=== PATIENT | female | born 1985 | race American Indian/Alaskan Native ===

== ENCOUNTER 2016-12-01 06:06 | Emergency (ER) | payer MEDICAID ==
[2016-12-01 07:16] VITALS: BP 124/78
--- NOTE | 2016-12-01 07:32 | Emergency Department Report ---
ED Chest Pain HPI - General Chief Complaint: Fall Stated Complaint: FALL Time Seen by Provider: 12/01/16 07:23 Source: patient Mode of arrival: Ambulatory Limitations: No Limitations - History of Present Illness -: Sudden, week(s) Onset: during rest Pain Location: substernal Severity: mild Consistency: intermittent Improves With: nothing Worsens With: nothing re: other (dizzy this time). denies: nausea, vomting, diaphoresis, dyspnea, sense of impending doom Other Symptoms: syncope, palpitations. denies: cough, fever, rash, acid taste in mouth, leg swelling, burping Treatments Prior to Arrival: none Aspirin use within the Past 7 Days: (0) No - Related Data On Oral Contraceptives: No Previous Rx's Medication Instructions Recorded Last Taken Type Ciprofloxacin HCl [Ciprofloxacin 500 mg PO Q12HR #14 tab 01/27/15 Unknown Rx TAB] Fluconazole [Diflucan TAB] 150 mg PO ONCE #1 tablet 01/27/15 Unknown Rx HYDROcodone/APAP 5-325 [[place] 1 each PO Q6HR PRN #12 tablet 01/27/15 Unknown Rx 5/325] Allergies Allergy/AdvReac Type Severity Reaction Status Date / Time No Known Allergies Allergy Verified 01/27/15 08:33 Heart Score - HEART Score History: Slightly suspicious EKG: Normal Age: < 45 Risk factors: No known risk factors Troponin: < normal limit HEART Score: 0 ED Review of Systems ROS: Stated complaint: FALL Other details as noted in HPI Comment: Unobtainable due to pts medical conditions Constitutional: no symptoms reported, see HPI. denies: chills Eyes: as per HPI. denies: eye pain ENT: as per HPI. denies: ear pain, throat pain Respiratory: no symptoms reported, see HPI. denies: cough, orthopnea Cardiovascular: as per HPI, chest pain, palpitations, syncope, other (w fall- saw pcp fri for cp ekg normal per pt). denies: dyspnea on exertion, orthopnea, edema, paroxysmal nocturnal dyspnea Endocrine: no symptoms reported, see HPI. denies: excessive sweating, flushing , intolerance to cold, intolerance to heat Gastrointestinal: as per HPI. denies: abdominal pain, nausea, vomiting Genitourinary: as per HPI, other (lmp 9-20). denies: urgency, dysuria Musculoskeletal: as per HPI. denies: back pain Skin: as per HPI. denies: rash, lesions Neurological: as per HPI. denies: headache, weakness Psychiatric: as per HPI. denies: anxiety, depression Hematological/Lymphatic: as per HPI. denies: easy bleeding (denies drugs or etoh) ED Past Medical Hx - Past Medical History Previous Medical History?: Yes Additional medical history: Vaginal delivery 2012 - Surgical History Past Surgical History?: No - Family History Family history: no significant - Social History Smoking Status: Former Smoker Substance Use Type: None - Medications Home Medications: Home Medications Medication Instructions Recorded Confirmed Last Taken Type Ciprofloxacin HCl [Ciprofloxacin 500 mg PO Q12HR #14 tab 01/27/15 Unknown Rx TAB] Fluconazole [Diflucan TAB] 150 mg PO ONCE #1 tablet 01/27/15 Unknown Rx HYDROcodone/APAP 5-325 [[place] 1 each PO Q6HR PRN #12 tablet 01/27/15 Unknown Rx 5/325] ED Physical Exam - General Limitations: No Limitations General appearance: alert - Head Head exam: Present: other (swelling frontal head ) - Eye Eye exam: Present: PERRL, EOMI - ENT ENT exam: Present: mucous membranes moist - Neck Neck exam: Present: normal inspection - Respiratory Respiratory exam: Present: normal lung sounds bilaterally - Cardiovascular Cardiovascular Exam: Present: regular rate (60s) - GI/Abdominal GI/Abdominal exam: Present: soft, normal bowel sounds - Rectal Rectal exam: Present: deferred - Extremities Exam Extremities exam: Present: normal inspection, full ROM, normal capillary refill. Absent: tenderness - Back Exam Back exam: Present: normal inspection, full ROM. Absent: tenderness, CVA tenderness (R), CVA tenderness (L) - Neurological Exam Neurological exam: Present: alert, oriented X3, CN II-XII intact, normal gait, reflexes normal. Absent: motor sensory deficit - Psychiatric Psychiatric exam: Present: normal affect, normal mood. Absent: depressed, agitated - Skin Skin exam: Present: warm, dry, intact. Absent: normal color, rash, diaphoretic ED Course Vital Signs 12/01/16 07:11 Temperature 98.4 F Pulse Rate 61 Respiratory 18 Rate Blood Pressure 124/78 O2 Sat by Pulse 100 Oximetry - Reevaluation(s) Reevaluation #1: 12/01/16 09:18 to er last pm sp fall she said she had cp got up and went to br next thing she knew she was on floor she had been having a bm frontal skull swelling no other co to pcp on friday for this cp ekg n per pt no hx no fam hx no drugs/etoh preg neg labs noted trop added and neg 12 lead nap taking po Reevaluation #2: 12/01/16 09:32 currently on no home meds chest xray n pt had to leave to get child long discussion on poc will see dr. thurman pt cell [phone] on dc bp 126/80, hr 70 no cp no sob verbalizes understanding dc instructions FREDDY score - Freddy Score Age > 65: (0) No Aspirin use within the Past 7 Days: (0) No 3 or more CAD Risk Factors: (0) No 2 or more Angina events in past 24 hrs: (0) No Known CAD with more than 50% Stenosis: (0) No Elevated Cardiac Markers: (0) No ST Deviation Greater than 0.5mm: (0) No FREDDY Score: 0 ED Medical Decision Making - Lab Data Result diagrams: 12/01/16 07:54 12/01/16 07:54 - EKG Data EKG shows normal: sinus rhythm - EKG Data Interpretation: no acute changes - Radiology Data Radiology results: image reviewed - Medical Decision Making see note likely vasovagal Critical care attestation.: If time is entered above; I have spent that time in minutes in the direct care of this critically ill patient, excluding procedure time. ED Disposition Clinical Impression: Chest pain, Fall, Syncope Disposition: DC-01 TO HOME OR SELFCARE Is pt being admited?: No Does the pt Need Aspirin: No Condition: Stable Instructions: Chest Pain (ED), Syncope (ED) Additional Instructions: no caffeine no alcohol drink a lot of water stand slowly follow up pcp again Friday follow up cardiology - see below let him know you where here Referrals: PRIMARY CARE,MD [Primary Care Provider] - 3-5 Days JONAH THURMAN MD [Staff Physician] - 3-5 Days Time of Disposition: 09:28
[2016-12-01 08:00] LABS: Bacteria,Urine 1+ /HPF (Negative); Bilirubin,Urine NEG (Negative); Blood,Urine NEG (Negative); Ketones,Urine NEG (Negative); Leukocyte Esterase,Urine TR (Negative); Mucus,Urine 2+ /HPF; Nitrite,Urine NEG (Negative); Protein,Urine <15 mg/dL mg/dL (Negative); Urobilinogen,Urine < 2.0 mg/dL (<2.0)
[2016-12-01 08:41] LABS: Alanine Aminotransferase 54 units/L (7-56); Albumin 4.2 g/dL (3.9-5); Albumin/Globulin Ratio 1.2 %; Alkaline Phosphatase 75 units/L (35-129); Anion Gap 17 mmol/L; BUN/Creatinine Ratio 20; Blood Urea Nitrogen 12 mg/dL (7-17); Calcium 9.3 mg/dL (8.4-10.2); Carbon Dioxide 25 mmol/L (22-30); Chloride 100.7 mmol/L (98-107); Glucose 92 mg/dL (65-100); Potassium 4.3 mmol/L (3.6-5.0); Sodium 138 mmol/L (137-145); Total Protein 7.7 g/dL (6.3-8.2)
[2016-12-01 08:53] LABS: Basophils % (Auto) 0.8 % (0.0-1.8); Eosinophils % (Auto) 8.1 % (0.0-4.3); Hematocrit 39.8 % (30.3-42.9); Hemoglobin 13.3 gm/dl (10.1-14.3); Mean Corpuscular HGB Conc 34 % (30-34); Mean Corpuscular Hemoglobin 26 pg (28-32); Mean Corpuscular Volume 78 fl (79-97); Platelet Count 280 K/mm3 (140-440); Red Blood Count 5.07 M/mm3 (3.65-5.03); Red Cell Distribution Width 16.3 % (13.2-15.2); White Blood Count 4.7 K/mm3 (4.5-11.0)
--- NOTE | 2016-12-01 09:25 | XRay Report ---
CHEST TWO VIEWS: 12/01/16 06:06:00 CLINICAL: Chest pain. COMPARISON: 09/10/09 FINDINGS: Normal heart and pulmonary vasculature. The lungs are normally expanded and clear.Scoliosis and mild degenerative changes in the spine. IMPRESSION: No acute cardiopulmonary process.
[2016-12-01 15:05] LABS: Urine Drugs of Abuse Note Disclamer
== END 2016-12-01 09:00 | disposition home or self-care (01) ==
LOC: ED 06:06
DX: R07.89 Other chest pain (principal); R55 Syncope and collapse; Z87.891 Personal history of nicotine dependence
CPT/HCPCS: 36415; 71020; 80053; 80307; 81001; 83735; 84443; 84484; 84703; 85025; 93005; 93010; 99284

== ENCOUNTER 2018-05-15 12:08 | Emergency (ER) | payer SELFPAY ==
--- NOTE | 2018-05-15 12:18 | Emergency Department Report ---
Chief Complaint: Back Pain/Injury Stated Complaint: BACK/THROAT/STOMACH PAIN Time Seen by Provider: 05/15/18 12:15 - HPI History of Present Illness: This is a 32 y.o. female that presents with sore throat and low back pain since this morning. - Exam Vital Signs: Vital Signs 05/15/18 12:14 Temperature 98.6 F Pulse Rate 110 H Respiratory 18 Rate Blood Pressure 119/48 O2 Sat by Pulse 99 Oximetry MSE screening note: Focused history and physical exam performed. Due to findings the following was ordered: labs ACC for further evaluation. ED Disposition for MSE Condition: Stable
[2018-05-15] MEDS ORDERED: IBUPROFEN PO ONE (13:33)
--- NOTE | 2018-05-15 13:34 | Emergency Department Report ---
ED General Adult HPI - General Chief complaint: Back Pain/Injury Stated complaint: BACK/THROAT/STOMACH PAIN Time Seen by Provider: 05/15/18 12:15 Source: patient Mode of arrival: Ambulatory Limitations: No Limitations - History of Present Illness Initial comments: 32-year-old female presents to ED with lower abdominal pain, lower back pain, sore throat, cough, chills since this morning. Patient states her daughter was sent home from school today with fever and tonsillitis. Patient denies nausea, vomiting, urinary symptoms, vaginal bleeding, vaginal discharge. -: This morning Location: mouth, back, abdomen Severity scale (0 -10): 10 Quality: aching Consistency: constant Associated Symptoms: cough, fever/chills. denies: nausea/vomiting - Related Data Previous Rx's Medication Instructions Recorded Last Taken Type Ciprofloxacin HCl [Ciprofloxacin 500 mg PO Q12HR #14 tab 01/27/15 Unknown Rx TAB] Fluconazole [Diflucan TAB] 150 mg PO ONCE #1 tablet 01/27/15 Unknown Rx HYDROcodone/APAP 5-325 [[place] 1 each PO Q6HR PRN #12 tablet 01/27/15 Unknown Rx 5/325] Ibuprofen [Motrin] 600 mg PO Q8H #30 tablet 01/22/18 Unknown Rx Sulfamethoxazole/Trimethoprim 1 each PO BID #20 tablet 01/22/18 Unknown Rx [Bactrim DS TAB] Benzonatate [Tessalon Perles] 100 mg PO Q8HR PRN #20 capsule 05/15/18 Unknown Rx Naproxen [Naprosyn] 500 mg PO BID #20 tablet 05/15/18 Unknown Rx Allergies Allergy/AdvReac Type Severity Reaction Status Date / Time No Known Allergies Allergy Verified 01/27/15 08:33 ED Review of Systems ROS: Stated complaint: BACK/THROAT/STOMACH PAIN Other details as noted in HPI Comment: All other systems reviewed and negative Constitutional: chills ENT: throat pain Respiratory: cough Gastrointestinal: abdominal pain. denies: nausea, vomiting, diarrhea Genitourinary: denies: dysuria, frequency, discharge, abnormal menses Neurological: denies: headache ED Past Medical Hx - Past Medical History Previous Medical History?: No Additional medical history: Vaginal delivery 2012 - Surgical History Past Surgical History?: No - Social History Smoking Status: Never Smoker Substance Use Type: None - Medications Home Medications: Home Medications Medication Instructions Recorded Confirmed Last Taken Type Ciprofloxacin HCl [Ciprofloxacin 500 mg PO Q12HR #14 tab 01/27/15 Unknown Rx TAB] Fluconazole [Diflucan TAB] 150 mg PO ONCE #1 tablet 01/27/15 Unknown Rx HYDROcodone/APAP 5-325 [[place] 1 each PO Q6HR PRN #12 tablet 01/27/15 Unknown Rx 5/325] Ibuprofen [Motrin] 600 mg PO Q8H #30 tablet 01/22/18 Unknown Rx Sulfamethoxazole/Trimethoprim 1 each PO BID #20 tablet 01/22/18 Unknown Rx [Bactrim DS TAB] Benzonatate [Tessalon Perles] 100 mg PO Q8HR PRN #20 capsule 05/15/18 Unknown Rx Naproxen [Naprosyn] 500 mg PO BID #20 tablet 05/15/18 Unknown Rx ED Physical Exam - General Limitations: No Limitations General appearance: alert, in no apparent distress - Head Head exam: Present: atraumatic, normocephalic - Eye Eye exam: Present: normal appearance - ENT ENT exam: Present: mucous membranes moist - Neck Neck exam: Present: normal inspection - Respiratory Respiratory exam: Present: normal lung sounds bilaterally. Absent: respiratory distress - Cardiovascular Cardiovascular Exam: Present: normal rhythm, tachycardia - GI/Abdominal GI/Abdominal exam: Present: soft, tenderness (mild suprapubic). Absent: distended - Extremities Exam Extremities exam: Present: normal inspection - Back Exam Back exam: Present: paraspinal tenderness (lower lumbar bilaterally). Absent: CVA tenderness (R), CVA tenderness (L) - Neurological Exam Neurological exam: Present: alert, oriented X3 - Psychiatric Psychiatric exam: Present: normal affect, normal mood - Skin Skin exam: Present: warm, dry, intact, normal color ED Course Vital Signs 05/15/18 05/15/18 05/15/18 12:14 14:00 15:00 Temperature 98.6 F Pulse Rate 110 H Respiratory 18 18 18 Rate Blood Pressure 119/48 O2 Sat by Pulse 99 Oximetry 05/15/18 15:12 Temperature Pulse Rate 112 H Respiratory Rate Blood Pressure 103/66 O2 Sat by Pulse 100 Oximetry ED Medical Decision Making - Medical Decision Making - nontoxic-appearing - tolerating PO - likley viral illness, daughter also sick - strep, UA negative - return precautions given - outpt f/u advised - naprosyn, tessalon prescribed - Differential Diagnosis UTI, viral illness, flu, strep throat Critical care attestation.: If time is entered above; I have spent that time in minutes in the direct care of this critically ill patient, excluding procedure time. ED Disposition Clinical Impression: Viral illness Disposition: DC- TO HOME OR SELFCARE Is pt being admited?: No Condition: Stable Instructions: Viral Syndrome (ED) Prescriptions: Naproxen [Naprosyn] 500 mg PO BID #20 tablet Benzonatate [Tessalon Perles] 100 mg PO Q8HR PRN #20 capsule PRN Reason: Cough Referrals: CHANCE HERNANDEZ MD [Primary Care Provider] - 3-5 Days Time of Disposition: 15:05
[2018-05-15 14:50] LABS: Bacteria,Urine 1+ /HPF (Negative); Bilirubin,Urine NEG (Negative); Blood,Urine SM (Negative); Color,Urine Yellow (Yellow); HCG Qualitative,Urine Negative (Negative); Mucus,Urine FEW /HPF; Protein,Urine <15 mg/dL mg/dL (Negative); Urobilinogen,Urine < 2.0 mg/dL (<2.0); WBC,Urine < 1.0 /HPF (0.0-6.0)
[2018-05-15 15:25] VITALS: BP 103/66
== END 2018-05-15 15:55 | disposition home or self-care (01) ==
LOC: ED 12:08
DX: B34.9 Viral infection, unspecified (principal); Z79.899 Other long term (current) drug therapy
CPT/HCPCS: 81001; 81025; 87116; 87430; 99283

== ENCOUNTER 2019-10-31 12:37 | Emergency (ER) | payer SELFPAY ==
[2019-10-31 13:01] VITALS: BP 95/63
[2019-10-31] MEDS ORDERED: oxyCODONE /ACETAMINOPHEN 5-325MG TAB PO ONE (13:54)
[2019-10-31] MEDS ORDERED: LIDOCAINE-MPF (1%) 10 MG/1 ML VIAL 5 ML INFILTRATI ONE (13:54)
[2019-10-31] MEDS ORDERED: ONDANSETRON 4 MG ODT TAB PO ONE (13:54)
--- NOTE | 2019-10-31 13:55 | Emergency Department Report ---
ED General Adult HPI - General Chief complaint: Skin/Abscess/Foreign Body Stated complaint: BOIL Time Seen by Provider: 10/31/19 13:29 Source: patient Mode of arrival: Ambulatory Limitations: No Limitations - History of Present Illness Initial comments: 33-year-old -[place] female patient presents with complaints of left vaginal pain and swelling x today. 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 She reports that she has seen an [facility] [facility] for this complaint in the past and they stated that she may have to have her gland removed. She denies any fever/chills/sweats, vaginal bleeding, or abdominal pain. She rates her current pain as a 10/10 in severity. -: Sudden - Related Data Previous Rx's Medication Instructions Recorded Last Taken Type Ciprofloxacin HCl [Ciprofloxacin 500 mg PO Q12HR #14 tab 01/27/15 Unknown Rx TAB] HYDROcodone/APAP 5-325 [[place] 1 each PO Q6HR PRN #12 tablet 01/27/15 Unknown Rx 5/325] Ibuprofen [Motrin] 600 mg PO Q8H #30 tablet 01/22/18 Unknown Rx Sulfamethoxazole/Trimethoprim 1 each PO BID #20 tablet 01/22/18 Unknown Rx [Bactrim DS TAB] Benzonatate [Tessalon Perles] 100 mg PO Q8HR PRN #20 capsule 05/15/18 Unknown Rx Naproxen [Naprosyn] 500 mg PO BID #20 tablet 05/15/18 Unknown Rx Acetaminophen/Codeine [Tylenol 1 tab PO Q6H PRN #8 tab 10/31/19 Unknown Rx /Codeine # 3 tab] Fluconazole (Nf) [Diflucan TAB] 150 mg PO ONCE #1 tablet 10/31/19 Unknown Rx Ibuprofen [Motrin 800 MG tab] 800 mg PO Q8HR PRN #21 tablet 10/31/19 Unknown Rx Sulfamethoxazole/Trimethoprim 1 each PO BID 10 Days #20 tablet 10/31/19 Unknown Rx [Bactrim DS TAB] Allergies Allergy/AdvReac Type Severity Reaction Status Date / Time No Known Allergies Allergy Verified 01/27/15 08:33 ED Review of Systems ROS: Stated complaint: BOIL Other details as noted in HPI Constitutional: denies: chills, diaphoresis, fever, malaise, weakness Respiratory: denies: shortness of breath Cardiovascular: denies: chest pain Genitourinary: denies: urgency, dysuria, frequency, hematuria, discharge, abnormal menses Musculoskeletal: denies: back pain Neurological: denies: headache, weakness, numbness, paresthesias Hematological/Lymphatic: denies: swollen glands ED Past Medical Hx - Past Medical History Previous Medical History?: Yes Additional medical history: Vaginal delivery 2012 - Surgical History Past Surgical History?: No - Social History Smoking Status: Never Smoker Substance Use Type: Alcohol, Marijuana - Medications Home Medications: Home Medications Medication Instructions Recorded Confirmed Last Taken Type Ciprofloxacin HCl [Ciprofloxacin 500 mg PO Q12HR #14 tab 01/27/15 Unknown Rx TAB] HYDROcodone/APAP 5-325 [[place] 1 each PO Q6HR PRN #12 tablet 01/27/15 Unknown Rx 5/325] Ibuprofen [Motrin] 600 mg PO Q8H #30 tablet 01/22/18 Unknown Rx Sulfamethoxazole/Trimethoprim 1 each PO BID #20 tablet 01/22/18 Unknown Rx [Bactrim DS TAB] Benzonatate [Tessalon Perles] 100 mg PO Q8HR PRN #20 capsule 05/15/18 Unknown Rx Naproxen [Naprosyn] 500 mg PO BID #20 tablet 05/15/18 Unknown Rx Acetaminophen/Codeine [Tylenol 1 tab PO Q6H PRN #8 tab 10/31/19 Unknown Rx /Codeine # 3 tab] Fluconazole (Nf) [Diflucan TAB] 150 mg PO ONCE #1 tablet 10/31/19 Unknown Rx Ibuprofen [Motrin 800 MG tab] 800 mg PO Q8HR PRN #21 tablet 10/31/19 Unknown Rx Sulfamethoxazole/Trimethoprim 1 each PO BID 10 Days #20 tablet 10/31/19 Unknown Rx [Bactrim DS TAB] ED Physical Exam - General Limitations: No Limitations General appearance: alert, in no apparent distress - Head Head exam: Present: atraumatic, normocephalic - Eye Eye exam: Present: normal appearance. Absent: PERRL, scleral icterus - Neck Neck exam: Present: normal inspection - Respiratory Respiratory exam: Absent: respiratory distress - Cardiovascular Cardiovascular Exam: Present: regular rate, normal rhythm - GI/Abdominal GI/Abdominal exam: Present: soft. Absent: distended, tenderness - External exam: Present: swelling (Left moderate-sized Bartholin's abscess noted with significant tenderness tO palpation. No erythema or drainage noted.) - Extremities Exam Extremities exam: Present: normal inspection ED Course Vital Signs 10/31/19 12:58 Temperature 98.5 F Pulse Rate 93 H Respiratory 18 Rate Blood Pressure 95/63 O2 Sat by Pulse 100 Oximetry - I & D Genitals Type of Procedure: Simple Site: Left labia Blade Size: 11 I & D Procedure: betadine prep, sterile drapes applied, sterile dressing applied, gauze wick placed Progress: Area prepped in Betadine. Anesthetized using 10 cc of 1% lidocaine without epi. Copious purulent drainage obtained, sample was sent for culture. Minimal bleeding occurred. Patient tolerated procedure well without any immediate complications. ED Medical Decision Making - Medical Decision Making 33-year-old -[place] female patient presents with complaints of left vaginal pain and swelling x today. 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 She reports that she has seen an [employer] [facility] for this complaint in the past and they stated that she may have to have her gland removed. Incision and drainage performed. Copious purulent drainage was obtained. Patient declined Word catheter. Patient is to follow-up with her [facility] [facility] in 3 to 5 days for further evaluation and treatment. Patient to return to the ED in 2 days for packing removal and wound recheck. She is afebrile and non- tachycardic. She is well-appearing and stable for discharge home. Prescription for Bactrim given. Wound care and strict return precautions were discussed in detail with patient who verbalizes understanding. Critical care attestation.: If time is entered above; I have spent that time in minutes in the direct care of this critically ill patient, excluding procedure time. ED Disposition Clinical Impression: Bartholin's gland abscess Disposition: DC-01 TO HOME OR SELFCARE Is pt being admited?: No Condition: Stable Instructions: Bartholin Cyst (ED), Incision and Drainage (ED) Additional Instructions: Please follow-up with your [employer]MENT [facility] and 3 to 5 days Prescriptions: Sulfamethoxazole/Trimethoprim [Bactrim DS TAB] 1 each PO BID 10 Days #20 tablet Fluconazole (Nf) [Diflucan TAB] 150 mg PO ONCE #1 tablet Ibuprofen [Motrin 800 MG tab] 800 mg PO Q8HR PRN #21 tablet PRN Reason: Pain, Moderate (4-6) Acetaminophen/Codeine [Tylenol /Codeine # 3 tab] 1 tab PO Q6H PRN #8 tab PRN Reason: Pain , Severe (7-10)
[2019-10-31] MEDS ORDERED: LIDOCAINE (1%) 10 MG/1 ML VIAL 20 ML MDV INFILTRATI ONE (14:58)
== END 2019-10-31 16:31 | disposition home or self-care (01) ==
LOC: ED 12:37
DX: N75.1 Abscess of Bartholin's gland (principal); F12.10 Cannabis abuse, uncomplicated; Z79.1 Long term (current) use of non-steroidal anti-inflammatories (NSAID); Z79.2 Long term (current) use of antibiotics; Z79.899 Other long term (current) drug therapy
CPT/HCPCS: 87076; 87116; 87186; 99282; Q0162